=== PATIENT | female | born 1940 | race African-American/Black ===

== ENCOUNTER 2021-01-27 01:26 | Inpatient (IN) | payer MEDICARE, MEDICAID ==
[~2021-01-27] VITALS: Ht 160 cm; Wt 85.3 kg
[~2021-01-27 01:26] MED LIST: AMLO2.5T45 PO; BENA20TA10 PO; METF-414 PO; SIMV-43 PO; ZOLP10TA2 PO
[2021-01-27] MEDS ORDERED: SODIUM CHLORIDE 0.9% 1,000 ML IV ONE (02:45)
[2021-01-27 03:07] LABS: BASOPHILS % 0.9 % (0.0-2.0); EOSINOPHILS % 1.4 % (0.0-5.0); HEMATOCRIT. 41.2 % (36.0-48.0); HEMOGLOBIN. 13.5 g/dL (12.0-16.0); LYMPHOCYTES % 20.1 % (20.0-50.0); MEAN CORPUSCULAR HEMOGLOBIN 30.2 pg (28.0-32.0); MEAN PLATELET VOLUME 8.7 fl (7.4-10.4); NEUTROPHILS % 66.6 % (40.0-76.0); PLATELET 191 x1000/uL (130-400); RED BLOOD CELL COUNT 4.48 mill/uL (4.2-5.4); RED CELL DISTRIBUTION WIDTH 14.5 % (11.6-14.6)
[2021-01-27 03:43] LABS: CHLORIDE 110 mEq/L (98-107)
[2021-01-27 07:40] LABS: CLARITY URINE CLEAR (CLEAR); COLOR URINE YELLOW (YELLOW); KETONES URINE NEGATIVE (NEGATIVE); LEUKOCYTE ESTERASE URINE NEGATIVE (NEGATIVE); NITRITE URINE NEGATIVE (NEGATIVE); OCCULT BLOOD URINE 2+ (NEGATIVE); PROTEIN URINE 2+ (NEGATIVE); SPECIFIC GRAVITY URINE 1.019 (1.005-1.030); UROBILINOGEN URINE 0.2 E.U./dL (0.2-1.0)
[2021-01-27] MEDS ORDERED: CLONIDINE 0.1MG TABLET PO PRN (08:00)
[2021-01-27] MEDS ORDERED: HYDRALAZINE 20MG/ML VIAL IV PRN (08:00)
[2021-01-27] MEDS ORDERED: ACETAMINOPHEN 325MG TABLET PO PRN (08:00)
[2021-01-27] MEDS ORDERED: DIPHENHYDRAMINE 50MG/ML VIAL IV PRN (08:00)
[2021-01-27] MEDS ORDERED: DOCUSATE SODIUM 100MG CAPSULE PO PRN (08:00)
[2021-01-27] MEDS ORDERED: MAGNESIUM/ALUMINUM HYDROXIDE/SIMETHICONE 30ML UDC PO PRN (08:00)
[2021-01-27] MEDS ORDERED: IPRATROPIUM/ALBUTEROL 0.5-3(2.5)MG/3ML NEB HHN PRN (08:00)
[2021-01-27] MEDS ORDERED: GUAIFENESIN 200MG/10ML SUGAR FREE UDC PO PRN (08:00)
[2021-01-27] MEDS ORDERED: ONDANSETRON HCL 4MG/2ML INJ IV PRN (08:00)
[2021-01-27] MEDS ORDERED: DEXTROSE 50% WATER 50ML SYRINGE IV PRN (08:00)
[2021-01-27] MEDS: INSULIN LISPRO 100 UNITS/ML SUBCUT SCH ×4 (08:20→21:00)
[2021-01-27] MEDS: BLOOD SUGAR DIAGNOSTIC STRIP TEST SCH ×4 (08:43→21:00)
[2021-01-27] MEDS ORDERED: ENOXAPARIN 40MG/0.4ML SYR SUBCUT SCH (09:00)
[2021-01-27] MEDS: MORPHINE SULFATE 2 MG/ML CPJ (NOT FOR IM USE) IV PRN ×2 (09:02→18:40)
[2021-01-27 09:04] LABS: ETHANOL BLOOD < 10 mg/dL
[2021-01-27 09:07] LABS: LDL CHOLESTEROL 77 mg/dL (5-100)
[2021-01-27 09:08] LABS: HDL CHOLESTEROL 66 mg/dL (40-59)
[2021-01-27 09:10] LABS: T4 FREE 1.14 ng/dL (0.76-1.46)
[2021-01-27 11:30] VITALS: BP 138/78
[2021-01-27] MEDS: HYDROCODONE/ACETAMINOPHEN 5/325MG TABLET PO PRN ×2 (14:14→22:36)
[2021-01-27] MEDS: SODIUM CHLORIDE 0.9% INJ 3ML FLUSH IVF SCH ×2 (14:16→22:35)
[2021-01-27 16:17] VITALS: BP 129/61
[2021-01-27 18:16] LABS: CREATINE KINASE MB FRACTION 39.5 ng/mL (0.5-3.6)
[2021-01-27 20:00] VITALS: BP 109/67
[2021-01-27] MEDS: ENOXAPARIN 40MG/0.4ML SYR SUBCUT SCH (22:34)
[2021-01-27] MEDS: LORAZEPAM 2MG/ML CPJ IV PRN (22:34)
[2021-01-27] MEDS: ZOLPIDEM TARTRATE 5MG TABLET PO PRN (23:45)
[2021-01-28] VITALS: BP 168/63
[2021-01-28 00:19] LABS: CREATINE KINASE MB FRACTION 25.5 ng/mL (0.5-3.6)
[2021-01-28 00:33] LABS: CREATINE KINASE 4959 IU/L (26-192)
[2021-01-28 04:00] VITALS: BP 162/91
[2021-01-28] MEDS: BLOOD SUGAR DIAGNOSTIC STRIP TEST SCH ×4 (06:39→21:46)
[2021-01-28] MEDS: SODIUM CHLORIDE 0.9% INJ 3ML FLUSH IVF SCH ×3 (06:39→21:46)
[2021-01-28 07:15] LABS: CHLORIDE 109 mEq/L (98-107)
[2021-01-28 07:20] LABS: BASOPHILS % 0.7 % (0.0-2.0); EOSINOPHILS % 4.5 % (0.0-5.0); HEMATOCRIT. 39.8 % (36.0-48.0); HEMOGLOBIN. 13.2 g/dL (12.0-16.0); LYMPHOCYTES % 36.8 % (20.0-50.0); MEAN CORPUSCULAR HEMOGLOBIN 30.6 pg (28.0-32.0); MEAN CORPUSCULAR VOLUME 91.9 fL (81.0-99.0); MONOCYTES % 10.4 % (2.0-8.0); NEUTROPHILS % 47.6 % (40.0-76.0); PLATELET 174 x1000/uL (130-400); RED BLOOD CELL COUNT 4.33 mill/uL (4.2-5.4)
[2021-01-28] MEDS: INSULIN LISPRO 100 UNITS/ML SUBCUT SCH ×4 (07:50→21:00)
[2021-01-28 08:00] VITALS: BP 184/98
[2021-01-28 08:05] LABS: *AMPHETAMINES SCREEN URINE NEGATIVE (NEGATIVE); *BARBITURATES SCREEN URINE NEGATIVE (NEGATIVE)
[2021-01-28 08:06] LABS: *BENZODIAZEPINES SCREEN URINE PRESUMTIVE POSITIVE (NEGATIVE); *COCAINE SCREEN URINE NEGATIVE (NEGATIVE); METHADONE URINE SCREEN NEGATIVE (NEGATIVE); OPIATES URINE SCREEN PRESUMTIVE POSITIVE (NEGATIVE); PHENCYCLIDINE URINE SCREEN NEGATIVE (NEGATIVE)
[2021-01-28 08:07] LABS: CANNABINOID URINE SCREEN NEGATIVE (NEGATIVE)
[2021-01-28 09:10] LABS: HAV IGM ANTIBODY Negative (Negative); HBSAG SCREEN Negative (Negative); HEPATITIS B CORE IGM AB Negative (Negative); HEPATITIS C AB 0.1 s/co ratio (0.0-0.9)
[2021-01-28] MEDS: POLYETHYLENE GLYCOL 3350 (17GM) 1 DOSE PACK PO SCH (10:28)
[2021-01-28] MEDS: SODIUM CHLORIDE 0.9% 1,000 ML IV SCH ×2 (10:28→21:58)
[2021-01-28] MEDS: HYDROCODONE/ACETAMINOPHEN 5/325MG TABLET PO PRN ×3 (10:40→21:48)
[2021-01-28 12:00] VITALS: BP 152/95
[2021-01-28 16:00] VITALS: BP 133/78
[2021-01-28] MEDS ORDERED: CEFTRIAXONE 1 G PREMIX 50 ML IV SCH (18:30)
[2021-01-28] MEDS ORDERED: CEFTRIAXONE 1,000 MG in DEXTROSE 5% WATER 50 ML IV SCH (20:00)
[2021-01-28 20:37] VITALS: BP 172/87
[2021-01-28] MEDS: ENOXAPARIN 40MG/0.4ML SYR SUBCUT SCH (21:45)
[2021-01-28 23:11] LABS: CLARITY URINE CLEAR (CLEAR); COLOR URINE YELLOW (YELLOW); KETONES URINE NEGATIVE (NEGATIVE); LEUKOCYTE ESTERASE URINE 3+ (NEGATIVE); NITRITE URINE POSITIVE (NEGATIVE); OCCULT BLOOD URINE 2+ (NEGATIVE); PH URINE 7.5 (4.5-8.0); PROTEIN URINE 1+ (NEGATIVE); SPECIFIC GRAVITY URINE 1.008 (1.005-1.030); UROBILINOGEN URINE 0.2 E.U./dL (0.2-1.0)
[2021-01-28] MEDS: ZOLPIDEM TARTRATE 5MG TABLET PO PRN (23:41)
[2021-01-29 00:14] VITALS: BP 157/71
[2021-01-29] MEDS: LORAZEPAM 2MG/ML CPJ IV PRN (01:28)
[2021-01-29] MEDS: MORPHINE SULFATE 2 MG/ML CPJ (NOT FOR IM USE) IV PRN ×2 (02:53→11:45)
[2021-01-29 04:00] VITALS: BP 146/91
[2021-01-29] MEDS: SODIUM CHLORIDE 0.9% INJ 3ML FLUSH IVF SCH ×2 (07:07→13:47)
[2021-01-29] MEDS: BLOOD SUGAR DIAGNOSTIC STRIP TEST SCH ×3 (07:07→17:20)
[2021-01-29] MEDS: INSULIN LISPRO 100 UNITS/ML SUBCUT SCH ×3 (07:50→17:50)
[2021-01-29] MEDS: POLYETHYLENE GLYCOL 3350 (17GM) 1 DOSE PACK PO SCH (08:59)
[2021-01-29] MEDS: HYDROCODONE/ACETAMINOPHEN 5/325MG TABLET PO PRN (09:08)
[2021-01-29] MEDS ORDERED: SODIUM CHLORIDE 0.9% 1,000 ML IV SCH (09:30)
[2021-01-29 11:41] VITALS: BP 166/101
[2021-01-29 13:13] LABS: CREATINE KINASE 1551 IU/L (26-192)
[2021-01-29 14:53] VITALS: BP 141/73
[2021-01-29 15:47] VITALS: BP 144/81
== END 2021-01-29 19:00 | disposition home or self-care (01) | DRG 557 ==
LOC: ER 01:26 → 6WST 06:05 → EDBEDREQTM 06:08 → EDBEDREQ 06:08 → ENRESERV 09:05
PROVIDERS: ADMIT Internal Medicine; ATTEND Internal Medicine
DX: M62.82 Rhabdomyolysis (principal); G93.41 Metabolic encephalopathy; N39.0 Urinary tract infection, site not specified; G96.08 Other cranial cerebrospinal fluid leak; E11.9 Type 2 diabetes mellitus without complications; E78.5 Hyperlipidemia, unspecified; I10 Essential (primary) hypertension; R77.8 Other specified abnormalities of plasma proteins; R74.01 Elevation of levels of liver transaminase levels; R79.89 Other specified abnormal findings of blood chemistry; I35.0 Nonrheumatic aortic (valve) stenosis; E78.00 Pure hypercholesterolemia, unspecified; Z79.84 Long term (current) use of oral hypoglycemic drugs; Z79.899 Other long term (current) drug therapy; Z82.49 Family history of ischemic heart disease and other diseases of the circulatory system; R55 Syncope and collapse; R53.1 Weakness
CPT/HCPCS: 36415; 71045; 72170; 80053; 80061; 80074; 80305; 80320; 81003; 82550; 82553; 82962; 83036; 83880; 84439; 84443; 84484; 85025; 85379; 86850; 86900; 87077; 87186; 93005; 93306; 93970; 97162; 97530; 99285; J0696; J1200; J1650; J1815; J2060; J2270; J7030; J7060; G0480